=== PATIENT | male | born 1945 ===

== ENCOUNTER 2019-04-28 11:09 | Observation (INO) | payer MEDICARE, BC ==
[2019-04-28] VITALS (13 sets, daily range): BP systolic 112–137; BP diastolic 57–86
[~2019-04-28] VITALS: Ht 167.6 cm; Wt 75.7 kg
--- NOTE | 2019-04-28 12:31 | Anethesia Preoperative Eval ---
Anesthesia Pre-op PMH/ROS General Date of Evaluation: Apr 28, 2019 Time of Evaluation: 12:54 Anesthesiologist: Selma Edwards CRNA ASA Score: ASA 2 Mallampati Score Class I : Soft palate, uvula, fauces, pillars visible Class II: Soft palate, uvula, fauces visible Class III: Soft palate, base of uvula visible Class IV: Only hard plate visible Mallampati Classification: Class II Surgeon: Joshua Diagnosis: abdominal hernia Surgical Procedure: Abdominal hernia repair with mesh Family History: no anesthesia problems Allergies: Coded Allergies: SULFAMETHOXAZOLE (Verified Allergy, Intermediate, "facial blothching", 05/05) TRIMETHOPRIM (Verified Allergy, Intermediate, "facial blothching", ) Medications: see eMAR Patient NPO?: Yes NPO Date: Apr 28, 2019 NPO Time: 05:30 - black coffee Past Medical History Cardiovascular: Denies: HTN, CAD, NE, valve dz, arrhythmia, other Pulmonary: Denies: asthma, COPD, ELISA, other Gastrointestinal/Genitourinary: Reports: other - recurrent kidney stones, BPH, abdominal hernia; Denies: GERD, CRI, ESRD Neurologic/Psychiatric: Denies: dementia, CVA, depression/anxiety, TIA, other Endocrine: Reports: hypothyroidism; Denies: DM, steroids, other HEENT: Reports: QUILEUTE (R); Denies: cataract (L), cataract (R), glaucoma, QUILEUTE (L), other Musculoskeletal/Integumentary: Reports: OA, other - gout; Denies: RA, DJD, DDD, edema PMH Narrative: as noted above PSxH Narrative: RT ear stapidectomy, lithotripsy Anesthesia Pre-op Phys. Exam Physician Exam Last Vital Signs Date Time Temp Pulse Resp B/P (MAP) Pulse Ox O2 Delivery O2 Flow Rate FiO2 04/28/19 11:57 97.8 63 18 136/77 100 Room Air Constitutional: NAD Neurologic: other - alert & oriented x 3 Cardiovascular: RRR Respiratory: CTA Gastrointestinal: S/NT/ND Airway Exam Mallampati Score: Class II MO: full Neck: FROM TMD: > 3 FB ROM: full Teeth: intact Dentures: no upper, no lower Anesthesia Pre-op A/P Labs reviewed from OSH, see chart Studies Pre-op Studies: EKG - NSR Risk Assessment & Plan Assessment: ASA 2, ok to proceed Plan: GETA Pre-Antibiotics Drug: Selma Barrera CRNA Apr 28, 2019 12:31
[2019-04-28 12:35] LABS: BASOPHILS % (AUTO) 0.9 % (0.0-2.0); EOSINOPHILS % (AUTO) 2.3 % (0.0-3.0); HEMATOCRIT 45.4 % (42.0-52.0); HEMOGLOBIN 15.1 G/DL (14.2-18.0); LYMPHOCYTES % (AUTO) 36.5 % (20.0-45.0); MEAN CORPUSCULAR VOLUME 94 FL (80-99); MONOCYTES % (AUTO) 9.6 % (1.0-10.0); NEUTROPHILS % (AUTO) 50.6 % (45.0-75.0); PLATELET COUNT 209 K/UL (150-450); RED BLOOD COUNT 4.85 M/UL (4.70-6.10); RED CELL DISTRIBUTION WIDTH 12.6 % (11.6-14.8)
[2019-04-28] MEDS ORDERED: Rocuronium Bromide 50mg/5ml Inj IV ONE (12:36)
[2019-04-28] MEDS ORDERED: Labetalol 5mg/ml 20ml vial IV PRN (12:45)
[2019-04-28] MEDS ORDERED: Hydromorphone 0.5mg/0.5ml inj IVP PRN ×2 (12:45→14:15)
[2019-04-28] MEDS ORDERED: Acetaminophen (Non formulary) 100 ML IV ONE (12:45)
[2019-04-28] MEDS ORDERED: LEVOTHYROXINE75 MCG ORAL (12:46)
[2019-04-28] MEDS ORDERED: Propofol 200mg/20ml IV ONE (12:47)
[2019-04-28] MEDS ORDERED: Lidocaine 1% MPF 10mg/ml 5ml ONE (12:47)
[2019-04-28] MEDS ORDERED: CIALIS5 MG PO (12:47)
[2019-04-28] MEDS ORDERED: ALLOPURINOL300 M1 ORAL (12:47)
[2019-04-28] MEDS ORDERED: fentaNYL 100 mcg/2 mL IV ONE (12:47)
[2019-04-28] MEDS ORDERED: Vit D3 PO (12:48)
[2019-04-28] MEDS ORDERED: FISH OIL CAP1000 MG ORAL (12:49)
[2019-04-28] MEDS ORDERED: Midazolam 2mg/2ml Inj ONE (12:51)
[2019-04-28] MEDS ORDERED: ACETAZOLAMIDE250 MG ORAL (12:53)
[2019-04-28] MEDS ORDERED: Bupivacaine 0.25% Inj 30ml INJ ONE ×2 (12:56→13:33)
[2019-04-28] MEDS ORDERED: Bacitracin 50000 Units Vial ONE (12:57)
[2019-04-28] MEDS ORDERED: LR 1000ml ONE (13:00)
[2019-04-28] MEDS ORDERED: NS Irrig 1000ml ONE (13:00)
[2019-04-28] MEDS ORDERED: Sterile Water Irrig 1000ml IRRIG ONE (13:00)
--- NOTE | 2019-04-28 13:06 | Pre-Procedure Note/Attestation ---
Pre-Procedure Note/Attestation Complete Prior to Procedure Planned Procedure: not applicable Procedure Narrative: Abdominal wall hernia repair with application of mesh Indications for Procedure Pre-Operative Diagnosis: ventral hernia Attestation I attest that I discussed the nature of the procedure; its benefits; risks and complications; and alternatives (and the risks and benefits of such alternatives ), prior to the procedure, with the patient (or the patient's legal sales representative printing). I attest that, if there was a reasonable possibility of needing a blood transfusion, the patient (or the patient's legal sales representative printing) was given the [facility] standardized written summary, pursuant to the Tony Shelley Blood Safety Act ([place] Health and Safety Code # 1645, as amended). I attest that I re-evaluated the patient just prior to the surgery and that there has been no change in the patient's H&P, except as documented below: Rebecca Lewis MD Apr 28, 2019 13:06
[2019-04-28] MEDS ORDERED: Glycopyrrolate 0.2mg/ml 1ml Vial ONE (13:47)
[2019-04-28] MEDS ORDERED: Neostigmine 1mg/ml 10ml Inj ONE (13:47)
--- NOTE | 2019-04-28 13:58 | Immediate Post-Op Evaluation ---
Immediate Post-Op Evalulation Immediate Post-Op Evalulation Procedure: Abdominal hernia repair with mesh Date of Evaluation: Apr 28, 2019 Time of Evaluation: 14:24 IV Fluids: LR 900 ml Estimated Blood Loss: 5 Blood Pressure Systolic: 137 Blood Pressure Diastolic: 86 Pulse Rate: 103 Respiratory Rate: 22 O2 Sat by Pulse Oximetry: 99 Temperature (Fahrenheit): 99.0 Pain Score (1-10): 0 Nausea: No Vomiting: No Complications none Patient Status: awake, reacts, patent, extubated Hydration Status: adequate Drug: Cefazolin 2 gm IV Given Within 1 Hr of Incision: Yes Time Given: 13:20 Selma Edwards CRNA Apr 28, 2019 13:58
--- NOTE | 2019-04-28 14:13 | Brief Operative Note ---
Immediate Post Operative Note Operative Note Pre-op Diagnosis: ventral hernia Procedure: ventral herniorrhaphy with application of mesh Post-op Diagnosis: same as pre-op Findings: consistent w/pre-op dx studies Surgeon: MD Henrique Friction Welding Machine Operator: MD Mikal Anesthesiologist: MD Jerry Specimen: none Complications: none Condition: stable Fluids: per anesthesiologist Estimated Blood Loss: minimal Drains: none Implant(s) used?: Yes Rebecca Lewis MD Apr 28, 2019 14:13
[2019-04-28] MEDS ORDERED: Zolpidem 5mg tab ORAL PRN (14:15)
[2019-04-28] MEDS ORDERED: HYDROmorphone 1mg/ml Carpuject IVP PRN (14:15)
--- NOTE | 2019-04-28 15:30 | NUR ---
NURSE NOTES: Pt came up to unit via hospital bed in stable condition and w/all belongings accounted for. Pt A&Ox4; VSS; on 2L NC; and in no apparent distress. Pt's IV site intact/asymptomatic w/IVF infusing and surgical site C/D/I. Will continue to monitor.
[2019-04-28] MEDS: D5 1/2NS w/KCl 20mEq 1,000 ML IV SCH (17:30)
[2019-04-28] MEDS: Docusate 100mg cap ORAL SCH (17:30)
--- NOTE | 2019-04-28 19:41 | NUR ---
HAND-OFF: Report given to ASHLEY Katz. Endorsed to please f/u w/burner operator re: home meds.
--- NOTE | 2019-04-28 20:20 | NUR ---
NURSE NOTES: Received report from ASHLEY Danielle. Patient is resting in bed with no c/o pain or discomfort at this time. No SOB on room air. Surgical dressing has scant blood but remains intact. IV site is c/d/i and asymptomatic running fluids. Bed is low and locked with call light within reach. Family is at bedside. Followed with Dr. Kendrick who advised to continue home meds. Will continue plan of care.
[2019-04-28] MEDS: ceFAZolin sod 1 GM in D5W 55 ML IV SCH (21:19)
[2019-04-29] MEDS: D5 1/2NS w/KCl 20mEq 1,000 ML IV SCH (03:00)
[2019-04-29] MEDS: ceFAZolin sod 1 GM in D5W 55 ML IV SCH (03:00)
[2019-04-29 04:00] VITALS: BP 108/65
--- NOTE | 2019-04-29 04:15 | History and Physical Report ---
DATE OF ADMISSION: 04/28/2019 Age 73, white male. : None. : None. ALLERGIES: None. CHIEF COMPLAINT: Abdominal hernia. PRESENT ILLNESS: This is a 73-year-old white male, which was admitted to the hospital for abdominal hernia repair. The story dates back to 2007 when the patient was diagnosed of having a CA of the prostate on rectal biopsy of the prostate and subsequently he underwent radical prostatectomy. Later on, he developed abdominal hernia at the midline insertion, which is getting worse and at times the patient has a problem of bowel getting stuck in the peritoneal sac and causing him some pain. The patient's last PSA 0.2 supervision. PAST HISTORY: The patient has a history of kidney stone, right side, underwent ESWL. He had a history of radical prostatectomy, history of surgery and placement of hakeem. On medical side, the patient has hypothyroidism and elevated cholesterol. The patient is and has three children. REVIEW OF SYSTEMS: The patient has occasional discomfort in the abdominal area. MEDICATIONS: The patient is on Synthroid for hypothyroidism and on cholesterol medication. PHYSICAL EXAMINATION: GENERAL: He is well developed, well nourished, in no acute distress. HEAD AND NECK: Negative. CHEST: Normal. Clear breathing sounds. HEART: Normal rhythm and sound. ABDOMEN: Soft. There is a scar within the midline of the lower abdomen and there some kind of herniation of the bowel. EXTERNAL GENITALIA: Normal phallus. Descended normal testicles. BACK: No CVA tenderness. RECTAL: . EXTREMITIES: Negative. IMPRESSION: Abdominal hernia, status post radical prostatectomy for CA of the prostate. Nasra Kendrick M.D. DR: MARVIN JOB#: [id number] CC:
[2019-04-29 06:01] LABS: EOSINOPHILS % (AUTO) 3.4 % (0.0-3.0); HEMATOCRIT 39.7 % (42.0-52.0); HEMOGLOBIN 14.4 G/DL (14.2-18.0); LYMPHOCYTES % (AUTO) 26.2 % (20.0-45.0); MEAN CORPUSCULAR VOLUME 88 FL (80-99); MONOCYTES % (AUTO) 7.2 % (1.0-10.0); NEUTROPHILS % (AUTO) 62.2 % (45.0-75.0); PLATELET COUNT 180 K/UL (150-450); RED CELL DISTRIBUTION WIDTH 11.2 % (11.6-14.8); WHITE BLOOD COUNT 7.7 K/UL (4.8-10.8)
[2019-04-29 06:04] LABS: ANION GAP 7 mmol/L (5-15); BLOOD UREA NITROGEN 20 mg/dL (7-18); CALCIUM 8.7 MG/DL (8.5-10.1); CARBON DIOXIDE 22 MMOL/L (21-32); CHLORIDE 111 MMOL/L (98-107); CREATININE 1.5 MG/DL (0.55-1.30); POTASSIUM 4.2 MMOL/L (3.5-5.1); SODIUM 140 MMOL/L (136-145)
--- NOTE | 2019-04-29 07:38 | NUR ---
HAND-OFF: Report given to ASHLEY Fletcher. Patient is stable.
[2019-04-29 08:00] VITALS: BP 122/69
--- NOTE | 2019-04-29 08:00 | NUR ---
NURSE NOTES: Received report from Betina RN, pt a/a/o x4 seating in bed with no signs of distress or other issues at this time. pt surgical incision soil. RN will change dressing as indicated by MD. pt is able to ambulate around the room with steady room. call light within reach, bed in lowest position, side rales up x2. plan to d/c home today. I will f/u as needed.
[2019-04-29] MEDS: Docusate 100mg cap ORAL SCH (08:27)
[2019-04-29 12:00] VITALS: BP 143/80
[2019-04-29] MEDS ORDERED: Tubing IV Secondary IV ONE (13:59)
--- NOTE | 2019-04-29 14:17 | NUR ---
NURSE NOTES: Received dc order to d/c home. discharge instructions and belongings list given to patient. IV removed prior to d/c. per MD no need to dressing change. pt is aware that needs to fallow up with MD in one week. pt left the floor with no signs of distress or other issues at this time. I will f/u as needed.
[2019-04-29 16:26] VITALS: BP 143/70
--- NOTE | 2019-04-29 16:26 | 48 Hour Post Anesthesia Eval ---
Post Anesthesia Evaluation Procedure: Abdominal hernia repair with mesh Date of Evaluation: Apr 29, 2019 Time of Evaluation: 16:25 Blood Pressure Systolic: 143 0: 70 Pulse Rate: 71 O2 Sat by Pulse Oximetry: 98 Airway: patent Nausea: No Vomiting: No Pain Intensity: 2 Hydration Status: adequate Mental Status/LOC: patient returned to baseline Follow-up Care/Observations: na Post-Anesthesia Complications: none Follow-up care needed: N/A Chelsey Saravia CRNA Apr 29, 2019 16:26
--- NOTE | 2019-05-04 12:15 | Operative Note - Dictated ---
DATE OF OPERATION: 04/28/2019 PREOPERATIVE DIAGNOSIS: Ventral hernia. POSTOPERATIVE DIAGNOSIS: Ventral hernia. OPERATION: Ventral herniorrhaphy with application of mesh plug. COMPLICATIONS: None. SURGEON: Rebecca Lewis M.D. FUEL CELL ASSEMBLER: Nasra Kendrick M.D. ANESTHESIA: General with endotracheal tube. ANESTHESIOLOGIST: Selma Edwards CRNA. INDICATIONS: This is a 73-year-old male who presented with a lump above his umbilicus. Recently he has had laparoscopic prostatectomy after which he developed hernia above the umbilicus. Physical examination showed reducible hernia at the size of walnut above the umbilicus under the incision, which he had above the umbilicus. PROCEDURE IN DETAIL: The patient was placed supine on the operating table and after general anesthesia with endotracheal tube, the abdomen was properly prepped and draped. A transverse incision was given about 1 inch above the umbilicus and was carried sharply through subcutaneous tissue and Jazmín fascia. The hernia was identified and it was gradually dissected and isolated. This was completely isolated and then it was inverted into the retroperitoneal space. The defect in the fascia was exposed which was about 1 inch in diameter and the fascia around the defect was isolated about [address] around[address] A large sized mesh plug was selected and was placed in the defect in the fascia. This plug was secured in place with multiple interrupted suture of 0 Prolene. After the application of the plug, the incision was thoroughly irrigated with antibiotic solution and was infiltrated with a total of 50 mL of Marcaine 0.25%. The defect in the fascia was obliterated in transverse fashion over the plug with the help of the running suture of #1 Prolene. After this repair, the subcutaneous tissue was approximated in two layers with a 3-0 plain catgut and the skin incision was approximated with running subcuticular suture of 4-0 chromic. The patient tolerated the procedure very well and was transferred to recovery room in stable condition and extubated. The sponge and needle count correct. Estimated blood loss was 10 mL. Condition of the patient at the end of procedure is stable. Rebecca Lewis M.D. DR: Lamin JOB#: [id number] CC: NIK
--- NOTE | 2019-05-16 11:52 | Discharge Summary ---
Discharge Summary Hospital Course Date of Admission Apr 28, 2019 at 15:03 Date of Discharge Apr 29, 2019 at 14:00 Admitting Diagnosis ventral hernia repair Reason for Hospitalization: Elective surgery HPI Juan David Wen is a 73 year old male who was admitted on Apr 28, 2019 at 15:03 for ventral hernia repair. In 2007 patient after rectal biopsy of the prostate , he was diagnosed with prostate cancer. He subsequently underwent radical prostatectomy. Later on, he developed abdominal hernia , which was getting worse and at times the patient had a problem of bowel getting stuck in the peritoneal sac and causing him some pain. Patient was admitted for elective surgery. Consultations Dr Lewis -general surgeon Procedures s/p 04/29/[address] Lewis, Ventral herniorrhaphy with application of mesh plug. Hospital Course status post surgery course of recovery uneventful initially IV fluids s/p perioperative antibiotics incision with dressing : clean dry and intact pain management was addressed ; and pain was controlled remained hemodynamically stable ambulated fall precautions maintained; safe for ambulation tolerated diet , IV fluids discontinued voided without difficulties bowel regimen instituted patient was stable for discharge discharge instructions provided follow up with surgeon in the office as advised FINAL DIAGNOSES ventral hernia history of radical prostatectomy for CA of the prostate. s/p ventral herniorrhaphy with application of mesh Discharge Medications Continued Medications: Acetazolamide* (Acetazolamide*) 250 Mg Tablet 250 MG ORAL DAILY, TAB (This prescription has been renewed) Allopurinol* (Allopurinol*) 300 Mg Tablet 150 MG ORAL DAILY, TAB (This prescription has been renewed) Fish Oil (Fish Oil 1,000 mg Capsule) 1 Each Capsule 1000 MG ORAL DAILY, CAP (This prescription has been renewed) Levothyroxine Sodium* (Levothyroxine Sodium*) 75 Mcg Tablet 88 MCG ORAL DAILY, TAB (This prescription has been renewed) Take in the morning on an empty stomach, at least 30 minutes before food. Tadalafil (Cialis) 5 Mg Tablet 5 MG PO DAILY, TAB (This prescription has been renewed) [Vit D3] () 2000 PO DAILY (This prescription has been renewed) Discharge Condition Upon Discharge: stable Discharge Disposition Patient was discharged home Discharge Instructions Discharge Instructions Special Instructions I have been assigned to complete a D/C Summary on this account. I was not involved in the patient management Luh Mendieta NP May 16, 2019 11:52
== END 2019-04-29 14:00 | disposition home or self-care (01) ==
LOC: SUR 11:09 → EDBD 13:00 → 3E 15:03
DX: K44.9 Diaphragmatic hernia without obstruction or gangrene (principal); Z87.442 Personal history of urinary calculi; Z90.79 Acquired absence of other genital organ(s); E03.9 Hypothyroidism, unspecified; E78.00 Pure hypercholesterolemia, unspecified; M19.90 Unspecified osteoarthritis, unspecified site
CPT/HCPCS: 36415 ×2; 49560; 49568; 80048; 85025 ×2; 85610; 85730; 96360; 96361; C1781; G0378 ×2; J0690; J2250; J2405; J2704; J2710; J3010; J3490; J7120; 94003; 94150